=== PATIENT | male | born 1950 | race Caucasian/White ===

== ENCOUNTER 2023-04-28 14:47 | Inpatient (IN) | payer MEDICARE, SELFPAY ==
[2023-04-28] VITALS (23 sets, daily range): BP systolic 51–189; BP diastolic 29–89; PULSE 51–140; RESP 7–43; TEMP 38.2–40.7; O2SAT 87–100
--- NOTE | ~2023-04-28 | XR_ITS ---
EXAMINATION: XR chest 1V portable INDICATION: Respiratory distress TECHNIQUE: Portable AP chest at 1702 hours COMPARISON: The patient is rotated. FINDINGS: There are bilateral perihilar opacities, right greater than left. No pleural effusion or pn eumothorax. The cardiomediastinal silhouette is normal. IMPRESSION: 1. Bilateral perihilar opacities, right greater than left, consistent with pneumonia and/or pulmonary edema. Reviewed, dictated and finalized at location F. IMPRESSION: 1. Bilateral perihilar opacities, right greater than left, consistent with pneu monia and/or pulmonary edema.
[2023-04-28 14:55] LABS: Glucose Point of Care 148 mg/dl (65-105)
[2023-04-28] MEDS: ACETAMINOPHEN 650 MG SUPPOSITORY 1300 MG (14:58)
[2023-04-28] MEDS: NOREPINEPHRINE 8 MG/D5W 250 ML 8 MG/250 ML BAG 18.75 MG IV CONT (14:59)
[2023-04-28] MEDS: ALBUTEROL SULFATE NEB 2.5 MG/3 ML INH 10 MG INHALATION (15:11)
--- NOTE | 2023-04-28 15:13 | PCRCNOTE ---
RT was instructed by MD to placed pt on bipap until family arrives to discuss further steps with pt's wishes to be placed on a ventilator or to be placed comfort. RT on standby.
--- NOTE | 2023-04-28 15:21 | ECG_ITS ---
Measurements Intervals [place] Rate: 139 P: 71 [place]: 143 QRS: -75 QRSD: 92 T: 79 QT: 281 QTc: 428 Interpretive Statements SINUS TACHYCARDIA PATTERN CONSISTENT WITH PULMONARY DISEASE LEFT ANTERIOR FASCICULAR BLOCK [QRS AXIS <= -45, QR IN I, RS IN II] ABNORMAL ECG NO PREVIOUS ECG AVAILABLE FOR COMPARISON Electronically Signed On 04-29-2023 8:46:15 CDT by Wesley Avalos M.D.
--- NOTE | 2023-04-28 15:22 | PC.NURSE ---
RN placed ice packs on pt
[2023-04-28 15:35] LABS: Basophils Absolute Auto 0.1 K/mm3 (0.0-0.1); Basophils Percent Auto 0.4 % (0.2-1.2); Eosinophils Absolute Auto 0.1 K/mm3 (0-0.3); Eosinophils Percent Auto 0.5 % (0-4.4); Hematocrit 36.6 % (42.0-52.0); Hemoglobin 11.1 g/dL (14.0-18.0); Immature Granulocyte Absolute 0.08 K/mm3 (0.00-0.031); Immature Granulocyte Percent A 0.6 % (0-0.5); Lymphocytes Absolute Auto 6.23 K/mm3 (0.9-3.2); Lymphocytes Percent Auto 48.2 % (18.3-44.2); Mean Corpuscular HGB Conc 30.3 g/dl (32-36); Mean Corpuscular Hemoglobin 26.2 pg (26-34); Mean Corpuscular Volume 86.3 fl (80-100); Mean Platelet Volume 10.7 fl (7.4-10.4); Monocytes Absolute Auto 0.3 K/mm3 (0.1-0.6); Monocytes Percent Auto 2.6 % (2.6-8.5); Neutrophils Absolute Auto 6.2 K/mm3 (1.3-6.7); Neutrophils Percent Auto 47.7 % (45.5-73.1); Platelet Count Result 248 k/mm3 (150-375); Red Blood Count 4.24 M/mm3 (4.6-6.20); White Blood Count 12.9 K/mm3 (4.5-10.0)
[2023-04-28 15:43] LABS: Appearance Urine Cloudy (Clear); Bacteria Urine 2+ /hpf; Bilirubin Urine Negative (Negative); Blood Urine Negative (Negative); Color Urine Yellow (Yellow); Glucose Urine UA Negative (Negative); Ketones Urine Negative (Negative); Leukocyte Esterase Ur 3+ LEU/UL (Negative); Nitrate Urine Negative (Negative); Protein Urine Trace mg/dL (Negative); RBC Urine 0-2 /hpf (0-2); Specific Grav Ur 1.014 (1.001-1.035); Squamous Epithelial Cell Urine None seen /hpf (Few); WBC Urine 51-100 /hpf
[2023-04-28 15:47] LABS: INR 1.2; Partial Thromboplastin Time 27.7 SECONDS (22.3-36.8); Prothrombin Time 16.3 Seconds (11.1-14.7)
--- NOTE | 2023-04-28 15:48 | PC.NURSE ---
1451- 1st dose EPI, 1452 BG, 1452- 2nd dose EPI, 1456 Catheter placed, 1459 Norepinephrine started at 10mcg, 1509 Norepinephrine titrated up to 15mcg, 1530 Norepinephrine titrated down to 10mcg.
[2023-04-28 15:50] LABS: Add Urine Microscopic? YES
[2023-04-28 15:52] LABS: Alanine Aminotransferase 31 U/L (6-50); Albumin Level 3.7 g/dL (3.5-5.1); Alkaline Phosphatase 108 U/L (38-126); Anion Gap 12 mmol/L (8-16); Aspartate Amino Transferase 48 U/L (17-59); Bilirubin,Total 0.8 mg/dL (0.2-1.3); Blood Urea Nitrogen 31 mg/dL (9-20); Calcium 9.2 mg/dL (8.4-10.2); Carbon Dioxide 27 mmol/L (22-30); Chloride 98 mmol/L (98-107); Estimated CRCL calculation 60 ml/min; Estimated Glomerular Filt Rate > 60; Glucose 142 mg/dL (65-110); Potassium 3.6 mmol/L (3.4-5.0); Sodium 137 mmol/L (137-145)
[2023-04-28 15:53] LABS: Lactic Acid Reflex 4.7 mmol/L (0.7-2.0)
[2023-04-28] MEDS: CEFEPIME 2 GM/NS 50 ML 2 GM/50 ML BAG IVPB (15:53)
[2023-04-28 16:05] LABS: Troponin I 0.106 ng/mL (0.000-0.034)
[2023-04-28] MEDS: SODIUM CHLORIDE 0.9% IV 1,000 ML 999 ML IV CONT ×2 (16:24→18:42)
--- NOTE | 2023-04-28 16:49 | ED.GENADULT ---
HPI - General Adult General Chief complaint: Shortness of Breath/Dyspnea Stated complaint: sepsis Time Seen by Provider: 04/28/23 15:00 History of Present Illness HPI narrative: Patient seen evaluated on EMS arrival he is a 73-year-old male who can provide no history due to being obtunded. Per EMS they were called for respiratory difficulties, he was initially saturating in the 60s to 70s for his facility and placed on a nasal cannula. On their arrival they did attempt to put a non-rebreather on patient and then transition to being the patient. They did have to give 1 dose of push dose epinephrine EN route given hypotension. Family did arrive and notes that he was hospitalized for pneumonia and UTI causing sepsis at [facility]. They confirm that he is do not resuscitate, do not intubate. Related Data Allergies Allergy/AdvReac Type Severity Reaction Status Date / Time No Known Allergies Allergy Mild Verified 05/04/08 00:07 Review of Systems Review of Systems: ROS unobtainable: Yes unobtainable due to medical condition and unobtainable due to mental status Exam Narrative: GENERAL: ill appearing, in acute distress HEAD: Normocephalic, atraumatic. EYES: PERRLA and EOMI. ENT: Nares clear. Mucous membranes dry. NECK: Supple. CHEST: Coarse bilateral breath sounds present. In respiratory distress HEART: Tachycardic. Normal peripheral pulses. ABDOMEN: Soft, nondistended. PEG tube in place. EXTREMITIES: Bilateral lower extremity contractures present. No edema. SKIN: Warm to touch. Stage 2 sacral ulcer present. NEURO: Unresponsive Course Course Emergency Course: Patient seen evaluated on EMS arrival. Patient is obtunded and in respiratory distress. EMS notes that they did have a discussion with family over phone that he would likely not want to be put on a ventilator, will initially placed him on BiPAP, IV fluids, vasopressors and antibiotics while we await family arrival. Family has arrived to the emergency department and confirmed that he is do not intubate, do not resuscitate, and they would not like any procedures such as a central line performed. Will continue with peripheral vasopressors and wean off as tolerated. I did discuss that if he remains on bipap, he could throw up in his mask and this could cause his breathing to be much worse. Family verbalizes understanding and they would like to continue our current treatment. Lab work reviewed. WBC 12.9, Hgb 11.1, Renal function normal, elevated lactic at 4.7, additional IVF ordered. Troponin elevated at 0.106, repeat ordered. Believe this is demand ischemia given septic shock. UA consistent with UTI, he has already been started on Cefepime and vancomycin. I did discuss continuation of peripheral vasopressors with family. I advised that this is toxic to peripheral vessels, family understands the risks and would prefer to keep this peripheral instead of central line placement. Chest x-ray is consistent with right-sided pneumonia. Azithromycin was added on to the antibiotic profile. I did discuss case with Dr. Ivelisse Arambula, agreeable for admission to the ICU. Case discussed with hospitalist team, Rosita, accepts patient for admission. Vital Signs Vital signs: Vital Signs Temperature 104.4 F H 04/28/23 14:46 Pulse Rate 140 H 04/28/23 14:46 Respiratory Rate 37 H 04/28/23 14:46 Blood Pressure 75/48 L 04/28/23 14:46 Pulse Oximetry 87 L 04/28/23 14:46 Oxygen Delivery Bag Valve Mask 04/28/23 14:46 Temperature 100.8 F H 04/28/23 19:06 Pulse Rate 99 04/28/23 19:19 Respiratory Rate 31 H 04/28/23 19:06 Blood Pressure 62/53 L 04/28/23 19:19 Pulse Oximetry 100 04/28/23 19:06 Oxygen Delivery BiPAP 04/28/23 18:28 Medical Decision Making Vital Signs Vital Signs: Vital Signs Temperature 104.4 F H 04/28/23 14:46 Pulse Rate 140 H 04/28/23 14:46 Respiratory Rate 37 H 04/28/23 14:46 Blood Pressure 75/48 L 04/28
[2023-04-28 17:40] LABS: NT Pro B Type Natriuretic Pept 1260 pg/mL (19.9-100)
[2023-04-28 18:33] LABS: Reflex Lactic Acid Yes or No Add Lactic
[2023-04-28] MEDS: AZITHROMYCIN 500 MG/NS 250 ML 500 MG/250 ML BAG 250 MG IVPB (18:58)
--- NOTE | 2023-04-28 20:00 | ADMGEN ---
This patient, Alex Austin, was admitted to Intensive Care Unit-2. Patient/family oriented to hospital policies and general routines including ID bracelet, bed and alarms, visiting hours, pain management, procedures, bathroom and other care routines, personal items, smoking policy, room service/diet, and visiting hours. Information on how to activate the Rapid Response Team has been discussed. Patient/Family are encouraged to report perceived risks to care and to ask questions if they do not understand what they are told or what they should do. Pt brought to ICU on Bipap agonally breathing. RR 7 unable to obtain BP or pleth on pulses oximeter. Py had emesis while turning to change soiled sheets. family brought into room informed of impending . family repeated that they wanted comfort focused treatment. Son and at bedside. Dr roman at bedside
[2023-04-28 20:09] LABS: Troponin I 0.346 ng/mL (0.000-0.034)
--- NOTE | 2023-04-28 20:23 | ADMGEN ---
This patient, Alex Austin, was admitted to Intensive Care Unit-2. Patient/family oriented to hospital policies and general routines including ID bracelet, bed and alarms, visiting hours, pain management, procedures, bathroom and other care routines, personal items, smoking policy, room service/diet, and visiting hours. Patient made comfort measures; TOD 2015. Information on how to activate the Rapid Response Team has been discussed. Patient/Family are encouraged to report perceived risks to care and to ask questions if they do not understand what they are told or what they should do.
--- NOTE | 2023-04-28 20:24 | PC.NURSE ---
Pt arrival to floor transferred to bed and cleaned of stool. Telemonitor applied and pt vomited in mask. Pt suctioned and mask cleaned out. Pt noted to be agonal breathing with heart rate in 40's. Nurse Pierre immediately notified family and brought into room. Decision made to let patient go. Dr Schultz notified. [id number]; called by Dr Schultz and Pierre VERA.
--- NOTE | 2023-04-28 23:25 | P.DN_ITS ---
Discharge Summary Date and Time Date of : 04/28/23 Time of : 20:14 Provider Pronounced By: nimo ponce Probable Cause of Probable Cause of : Septic shock Summary Hospital Course: Patient was admitted to intensive care unit for fluid resuscitation although patient had a do not resuscitate in place and do not intubate in place family was okay with fluid resuscitation vasopressor support however patient past away soon after admission and in view of immediately development of care was transitioned to comfort care measures only with patient passing away a Mohs immediately. 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
--- NOTE | 2023-04-28 23:25 | PM.IMHP ---
H&P: HPI History of Present Illness Date/Time: 04/28/23 23:25 Chief Complaint: Shortness of breath Narrative: This is a 73-year-old male with past medical history significant for trauma to the head while falling off of a ladder, craniotomy, craniectomy. Patient residing at senior living facility was brought to the emergency room due to respiratory distress with oxygen saturation 60-70% patient had advanced directives of do not resuscitate do not intubate. Patient was made comfort care only upon admission. Review of Systems Review of Systems: ROS unobtainable: Yes unobtainable due to mental status (Stuporous) PMFSH Social History Social History Alcohol intake: never Substance use: never Spiritual care concerns: No Meds Home Medications and Allergies Allergies Allergy/AdvReac Type Severity Reaction Status Date / Time No Known Allergies Allergy Mild Verified 05/04/08 00:07 Vital Signs Vital Signs - 24 hr 04/28/23 14:46 04/28/23 15:17 04/28/23 15:11 Temperature 104.4 F H Pulse Rate 140 H 135 H Respiratory Rate 37 H 42 H Blood Pressure 75/48 L Pulse Oximetry 87 L Oxygen Delivery Bag Valve Mask BiPAP 04/28/23 15:12 04/28/23 14:59 04/28/23 15:09 Temperature Pulse Rate 135 H 130 H 139 H Respiratory Rate 42 H Blood Pressure 71/54 L 77/46 L Pulse Oximetry 92 Oxygen Delivery BiPAP 04/28/23 15:30 04/28/23 16:11 04/28/23 16:11 Temperature Pulse Rate 137 H 127 H 127 H Respiratory Rate 39 H 39 H Blood Pressure 189/77 H Pulse Oximetry 99 Oxygen Delivery BiPAP 04/28/23 16:47 04/28/23 15:34 04/28/23 15:46 Temperature 105.3 F H 105.2 F H Pulse Rate 122 H 135 H 132 H Respiratory Rate 35 H 43 H Blood Pressure 157/82 H 131/52 L 154/89 H Pulse Oximetry 98 99 Oxygen Delivery 04/28/23 17:09 04/28/23 17:31 04/28/23 18:28 Temperature 103.7 F H Pulse Rate 116 H 110 H 98 Respiratory Rate 36 H 39 H Blood Pressure 165/62 H 149/89 H Pulse Oximetry 93 96 Oxygen Delivery BiPAP 04/28/23 18:28 04/28/23 18:42 04/28/23 15:28 Temperature 103.7 F H Pulse Rate 98 93 Respiratory Rate 39 H Blood Pressure 51/29 L Pulse Oximetry 96 Oxygen Delivery BiPAP 04/28/23 18:57 04/28/23 19:19 04/28/23 17:45 Temperature 103.1 F H Pulse Rate 101 H 99 108 H Respiratory Rate 34 H Blood Pressure 73/47 L 62/53 L 103/42 L Pulse Oximetry 96 Oxygen Delivery 04/28/23 18:15 04/28/23 18:45 04/28/23 18:55 Temperature 102.3 F H 101.6 F H 101.5 F H Pulse Rate 102 H 96 100 Respiratory Rate 32 H 24 H 29 H Blood Pressure 122/40 L 58/41 L 71/45 L Pulse Oximetry 96 94 94 Oxygen Delivery 04/28/23 19:06 04/28/23 20:00 04/28/23 20:00 Temperature 100.8 F H 102 F H Pulse Rate 102 H 51 L 95 Respiratory Rate 31 H 7 L 29 H Blood Pressure 95/48 L Pulse Oximetry 100 93 Oxygen Delivery BiPAP Exam Narrative: Arrived to patient's bedside family members at bedside Patient is actively passing away Const: General: comfortable, no acute distress and other (Passing away) Orientation/consciousness: Other orientation findings (Patient is comatose passing away) Other: Generalized pallor HENMT: Head: other (Left-sided fronto parietal concave defect) Eyes: General: appearance normal, both eyes and all related structures Neck: Neck: full ROM, no lymphadenopathy and no JVD Lymphatic: no lymphadenopathy noted Resp: Effort & Inspection: no stridor Cardio: Rate: bradycardic Rhythm: regular rhythm : General: Yes deferred Neuro: General: other (Passing away, comatose) H&P: Results Labs Labs: Short CBC 04/28/23 Range/Units 15:24 WBC 12.9 H (4.5-10.0) K/mm3 Hgb 11.1 L (14.0-18.0) g/dL Hct 36.6 L (42.0-52.0) % Plt Count 248 (150-375) k/mm3 BMP 04/28/23 15:24 Sodium 137 Potassium 3.6 Chloride 98 Carbon Dioxide 27 BUN 31 H Creatinine 1.00 Glucose 142 H Calcium 9.2 Cardiac Enzymes
--- NOTE | 2023-05-18 05:45 | PM.IMHP ---
H&P: HPI History of Present Illness Date/Time: 05/18/23 05:45 Chief Complaint: sob Narrative: This is a 73-year-old male with past medical history significant for subdural hematoma with craniotomy and craniectomy, patient comes from detention due to low pulse ox in the 60-70% upon arrival to emergency room patient placed on BiPAP and admitted to ICU however shortly after patient patient has the advanced directive where do not resuscitate comfort care measures only. Review of Systems Review of Systems: ROS unobtainable: Yes unobtainable due to mental status (Stuporous) PMFSH Social History Social History Alcohol intake: never Substance use: never Spiritual care concerns: No Meds Home Medications and Allergies Allergies Allergy/AdvReac Type Severity Reaction Status Date / Time No Known Allergies Allergy Mild Verified 05/04/08 00:07 Exam Narrative: Arrived to patient's bedside family members at bedside Patient is actively passing away Const: General: comfortable, no acute distress and other (Passing away) Orientation/consciousness: Other orientation findings (Patient is comatose passing away) Other: Generalized pallor HENMT: Head: other (Left-sided fronto parietal concave defect) Eyes: General: appearance normal, both eyes and all related structures Neck: Neck: full ROM, no lymphadenopathy and no JVD Lymphatic: no lymphadenopathy noted Resp: Effort & Inspection: no stridor Cardio: Rate: bradycardic Rhythm: regular rhythm : General: Yes deferred Neuro: General: other (Passing away, comatose) Assessment and Plan Assessment and plan (1) Septic shock: Code(s): A41.9 - Sepsis, unspecified organism; R65.21 - Severe sepsis with septic shock Status: Acute Assessment and Plan: Comfort care measures only (2) Respiratory failure: Qualifiers: Chronicity: acute Respiratory failure complication: hypoxia Qualified Code(s): J96.01 - Acute respiratory failure with hypoxia Code(s): J96.90 - Respiratory failure, unspecified, unspecified whether with hypoxia or hypercapnia Status: Acute Assessment and Plan: Comfort care measures only (3) HCAP (healthcare-associated pneumonia): Code(s): J18.9 - Pneumonia, unspecified organism Status: Acute Assessment and Plan: Comfort care measures only (4) Acute urinary tract infection: Code(s): N39.0 - Urinary tract infection, site not specified Status: Acute Assessment and Plan: Comfort care measures only
== END 2023-04-28 20:14 | disposition expired | DRG 871 ==
LOC: ANHED 18:02 → ANHICU 19:03
PROVIDERS: Admitting Provider Student in an Organized Health Care Education/Training Program; Emergency Provider Student in an Organized Health Care Education/Training Program; PCP Hospitalist; Visit Provider Student in an Organized Health Care Education/Training Program
DX: A41.9 Sepsis, unspecified organism (principal); J18.9 Pneumonia, unspecified organism; J96.01 Acute respiratory failure with hypoxia; R65.21 Severe sepsis with septic shock; N39.0 Urinary tract infection, site not specified; I24.89 Other forms of acute ischemic heart disease; Z66 Do not resuscitate
CPT/HCPCS: 36415; 71045; 80053; 81001; 82948; 83605; 83880; 84484; 85025; 85610; 85730; 86140; 87040; 87086; 87147; 87181; 87186; 93005; 94640; 96365; 99285; A9270; J0171; J0456; J0692; J3370; J7030